=== PATIENT | male | born 1990 | race Two or more races ===

== ENCOUNTER 2020-05-16 15:17 | Emergency (ER) | payer SELFPAY ==
[~2020-05-16] VITALS: Ht 177.8 cm; Wt 78.5 kg
[2020-05-16] MEDS ORDERED: methylPREDNISolone SOD SUCC 125 MG/2 ML IVPush ONE (15:30)
[2020-05-16] MEDS ORDERED: DIPHENHYDRAMINE 50 MG/ML, 1ML IVPush ONE (15:30)
[2020-05-16] MEDS ORDERED: FAMOTIDINE 20 MG/2 ML IVPush ONE (15:30)
[2020-05-16] MEDS ORDERED: EPINEPHRINE 1 MG/ML, 1ML SQ ONE (15:30)
--- NOTE | 2020-05-16 15:31 | NUR ---
task RN note: pt presents to ED having accidentally ingested shrimp approx 45 min ago. pt did take one zyrtec prior to arrival. pt feels that his throat is swollen, but is able to swallow and tolerate secretions. pt has angioedema, states it is already improved from the swelling he noted initially, also reports generalized itching, no hives noted. pt placed on all monitors, PIV placed by CHRISTIANO Tsai. call light in reach. report given to CHRISTIANO Tsai.
[2020-05-16] MEDS ORDERED: FAMOTIDINE 20 MG/2 ML ONE (15:34)
[2020-05-16] MEDS ORDERED: DIPHENHYDRAMINE 50 MG/ML, 1ML ONE (15:34)
[2020-05-16] MEDS ORDERED: EPINEPHRINE 1 MG/ML, 1ML ONE (15:34)
[2020-05-16] MEDS ORDERED: methylPREDNISolone SOD SUCC 125 MG/2 ML ONE (15:34)
--- NOTE | 2020-05-16 15:42 | NUR ---
Pt medicated per MAR, POC discussed. Pt denies other needs.
--- NOTE | 2020-05-16 15:54 | NUR ---
Pt reports he is feeling better, less swollen in his face/lips. Pt reports drowsiness after Benadryl. PA at bedside to discuss POC with pt. Pt denies other needs. Will continue to monitor.
[2020-05-16 16:27] VITALS: BP 121/74
--- NOTE | 2020-05-16 16:28 | NUR ---
Pt reports "I feel back to normal." Pt verbalizes he wants to go home. Pt ok for dc per Gerard SUAZO.
== END 2020-05-16 16:35 | disposition home or self-care (01) ==
LOC: ED 15:59
DX: T78.3XXA Angioneurotic edema, initial encounter (principal); T78.1XXA Other adverse food reactions, not elsewhere classified, initial encounter; R11.10 Vomiting, unspecified; X58.XXXA Exposure to other specified factors, initial encounter; Y93.89 Activity, other specified; Y92.89 Other specified places as the place of occurrence of the external cause; Y99.8 Other external cause status
CPT/HCPCS: 96372; 96374; 96375; 99284; J0171; J1200; J2930

== ENCOUNTER 2020-08-30 19:20 | Emergency (ER) | payer BC ==
[~2020-08-30] VITALS: Ht 177.8 cm; Wt 80.3 kg
--- NOTE | 2020-08-30 21:55 | NUR ---
Provider at bedside. RN at bedside. Pt able to walk, equal steady gait. Reporting pain on interior lateral knee.
[2020-08-30 22:34] VITALS: BP 118/74
--- NOTE | 2020-08-30 22:35 | NUR ---
task rn: Patient given discharge instructions and they have confirmed that they understand the instructions. Patient ambulatory. nad, denies additional questions or needs at this time. no personal belongings left in room after dc.
== END 2020-08-30 22:38 | disposition home or self-care (01) ==
LOC: ED 19:50
DX: S80.01XA Contusion of right knee, initial encounter (principal); X50.1XXA Overexertion from prolonged static or awkward postures, initial encounter; Y93.89 Activity, other specified; Y92.89 Other specified places as the place of occurrence of the external cause; Y99.8 Other external cause status
CPT/HCPCS: 99283